=== PATIENT | female | born 1930 | race Two or more races ===

== ENCOUNTER 2016-07-15 13:02 | Emergency (ER) | payer MEDICARE, OTHER ==
[~2016-07-15 13:02] MED LIST: AMOX1TAB61 PO; AMOX500C PO; BENZ100C PO; CEFI200S PO; CEFT1FRO2 IV; CEPH-264 PO; CYCL10TA2 PO; DICL100G7 TP; GABA-586 PO; LISI-334 PO; MINO50CA PO; NITR100C62 PO; OXYC1TAB7 PO; POLY500P14 MC; SERT25TA4 PO; SERT50TA8 PO; SULF1TAB24 PO; SULF1TAB3 PO
--- NOTE | 2016-07-15 14:05 | RAD ---
Indication productive cough. Duration of symptoms for days. A single view of the chest was obtained and is compared to a study 02/16/2016. Slightly tortuous thoracic aorta is noted. Heart size and pulmonary vessels are within normal limits. A focal infiltrate is not seen. Significant pleural fluid is not seen. There is no pneumothorax. A significant change compared to the prior study is not seen. IMPRESSION: No acute or focal process. No significant change
[2016-07-15 14:08] LABS: BILIRUBIN,URINE NEGATIVE (NEG); GLUCOSE,URINE NEGATIVE (NEG); NITRITE,URINE POSITIVE (NEG); PROTEIN,URINE 30 mg/dL (NEG-TRACE)
--- NOTE | 2016-07-15 14:10 | EKG ---
[facility] [address] [place] [address] Test Date: 2016-07-15 Test Time: 13:51:08 Pat Name: DOT Sandhupartment: Room: Gender: F Office Administrator: : [id number] Requested By: RASHIDA ANTON Order Number: [id number] Reading MD: Measurements Intervals Smyer Rate: 72 P: 39 IN: 178 QRS: -4 QRSD: 70 T: 39 QT: 382 QTc: 420 Interpretive Statements SINUS RHYTHM LEFTWARD AXIS R-S TRANSITION ZONE IN V LEADS DISPLACED TO THE RIGHT OTHERWISE NORMAL ECG RI6.01 Unconfirmed report No previous ECG available for comparison
--- NOTE | 2016-07-15 14:21 | RAD ---
CT of the head without contrast, 07/15/2016: History: Confusion Comparison is made to a study from 02/16/2016. There is encephalomalacia in the posterior aspect of the right cerebellar hemisphere compatible with an old infarct. There are large sulci with underlying cerebral lucency in the left frontoparietal region also compatible with an old infarct. There is compensatory enlargement of the left lateral ventricle. There is no shift of the midline structures. There is no evidence of acute intracranial hemorrhage or mass effect. There is extensive calcific plaquing of the distal internal carotid and vertebral arteries bilaterally. Extensive hyperostosis interna is present bilaterally. IMPRESSION: 1. 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 2. No acute intracranial abnormality is detected. PQRS Compliance Statement: One or more of the following individualized dose reduction techniques were utilized for this examination: 1. Automated exposure control 2. Adjustment of the mA and/or kV according to patient size 3. Use of iterative reconstruction technique
--- NOTE | 2016-07-15 14:21 | PHYS DOC ---
Past Medical History Past Medical History: Hypertension, Stroke Additional Past Medical Histor: nerve pain in the lower ext Past Surgical History: Other Additional Past Surgical Histo: supra pubic cath Alcohol Use: None Drug Use: None Adult General Chief Complaint Chief Complaint: DIFFICULTY SWALLOWING HPI HPI 85-year-old female presenting to the emergency department today with 2 main complaints. Complaint #1. Cough. She describes a hacking cough that is productive with white sputum. Started approximate 4 days ago. She has also been having trouble swallowing for the past 7 days. She has a history of a stroke with residual deficits in her right upper and lower extremity. Family reports that she is having difficulty with soft foods and liquids. They deny her having a fever at home. Onset 4 days. Location lungs. Duration intermittent. Associated with a cough. Review of systems is negative for chest pain shortness of breath abdominal pain nausea or vomiting. All other review of systems is negative unless otherwise noted in history of present illness. Review of Systems Review of Systems SEE ABOVE. Allergies Allergies Allergies Coded Allergies Type Severity Reaction Last Updated Verified No Known Drug Allergies 07/15/16 No Physical Exam Physical Exam Constitutional: Well developed, well nourished, no acute distress, non-toxic appearance. [] HENT: Normocephalic, atraumatic, bilateral external ears normal, oropharynx moist, no oral exudates, nose normal. Eyes: PERRLA, EOMI, conjunctiva normal, no discharge. [] Neck: Normal range of motion, no tenderness, supple, no stridor. Cardiovascular:Heart rate regular rhythm, no murmur [] Lungs & Thorax: Bilateral breath sounds clear to auscultation Abdomen: Bowel sounds normal, soft, no tenderness, no masses, no pulsatile masses. [] Skin: Warm, dry, no erythema, no rash. [] Back: No tenderness, no CVA tenderness. Extremities: No tenderness, no cyanosis, no clubbing, ROM intact, no edema. [] Neurologic: Mental status: Awake oriented and alert x3 Cranial nerves: Extraocular movements intact, eyebrows nida bilaterally smile symmetric, uvula elevation, shoulder shrug intact, tongue protrusion midline Sensation: equal and normal in all extremities Strength: 5 strength in the left upper and left lower extremity. Patient has residual weakness in the right upper and right lower extremity. Psychologic: Affect normal, judgement normal, mood normal. Current Patient Data Vital Signs Vital Signs Date Time Temp Pulse Resp B/P Pulse Ox O2 Delivery O2 Flow Rate FiO2 07/15/16 13:09 97.7 79 20 126/69 97 Room Air 97.7 Lab Values Laboratory Tests Test 07/15/16 14:00 07/15/16 14:23 07/15/16 14:25 Urine Collection Type Unknown Urine Color Yellow Urine Clarity Turbid Urine pH 6.0 Urine Specific [place] 1.020 Urine Protein 30mg/dL (NEG-TRACE) Urine Glucose (UA) Negativemg/dL (NEG) Urine Ketones (Stick) Negativemg/dL (NEG) Urine Blood Large (NEG) Urine Nitrite Positive (NEG) Urine Bilirubin Negative (NEG) Urine Urobilinogen Dipstick 1.0mg/dL (0.2 mg/dL) Urine Leukocyte Esterase Large (NEG) Urine RBC 6-10/HPF (0-2) Urine WBC >40/HPF (0-4) Urine Squamous Epithelial Cells Occ/LPF Urine Bacteria Moderate/HPF (0-FEW) Urine Yeast Present/HPF Glucose (Fingerstick) 93mg/dL (70-99) White Blood Count 8.5x10^3/uL (4.0-11.0) Red Blood Count 4.62x10^6/uL (3.50-5.40) Hemoglobin 11.7g/dL (12.0-15.5) L Hematocrit 37.0% (36.0-47.0) Mean Corpuscular Volume 80fL (79-100) Mean Corpuscular Hemoglobin 25pg (25-35) Mean Corpuscular Hemoglobin Concent 32g/dL (31-37) Red Cell Distribution Width 17.5% (11.5-14.5) H Platelet Count 222x10^3/uL (140-400) Neutrophils (%) (Auto) 63% (31-73) Lymphocytes (%) (Auto) 26% (24-48) Monocytes (%) (Auto) 8% (0-9) Eosinophils (%) (Auto) 3% (0-3) Basophils (%) (Auto) 0% (0-3) Neutrophils # (Auto) 5.3x10^3uL (1.8-7.7) Lymphocytes # (Auto) 2.2x10^3/uL (1.0-4.8) Monocytes # (Auto) 0.7x10^3/uL (0.0-1.1) Eosinophils # (Auto) 0.2x10^3/uL (0.0-0.7) Basophils # (Auto) 0.0x10^3/uL (0.0-0.2) Sodium Level 146mmol/L (136-145) H Potassium Level 4.1mmol/L (3.5-5.1) Chloride Level 107mmol/L (98-107) Carbon Dioxide Level 28mmol/L (21-32) Anion Gap 11 (6-14) Blood Urea Nitrogen 19mg/dL (7-20) Creatinine 0.5mg/dL (0.6-1.0) L Estimated GFR (Cockcroft-Gault) 117.0 Glucose Level 102mg/dL (70-99) H Lactic Acid Level 1.0mmol/L (0.4-2.0) Calcium Level 9.4mg/dL (8.5-10.1) Total Bilirubin 0.3mg/dL (0.2-1.0) Direct Bilirubin 0.1mg/dL (0.0-0.2) Aspartate Amino Transferase (AST) 23U/L (15-37) Alanine Aminotransferase (ALT) 19U/L (14-59) Alkaline Phosphatase 86U/L (46-116) Troponin I Quantitative 0.028ng/mL (0.000-0.055) XU-Fpg-B-Type Natriuretic Peptide 223pg/mL (0-449) Total Protein 7.3g/dL (6.4-8.2) Albumin 3.1g/dL (3.4-5.0) L Lipase 169U/L (73-393) Laboratory Tests 07/15/16 14:25 Laboratory Tests 07/15/16 14:25 EKG EKG [] Radiology/Procedures Radiology/Procedures [] Course & Med Decision Making Course & Med Decision Making Pertinent Labs and Imaging studies reviewed. (See chart for details) 85-year-old female presenting to the emergency department today with choking on foods difficulty swallowing and cough over the past few days. Initially the patient's vital signs afebrile. Unremarkable. Physical exam findings show residual stroke on the right upper and lower extremity. Chest x-ray obtained. EKG unremarkable. Blood work obtained. Chest x-ray normal. CBC shows mild anemia. Urinalysis suggestive of infection. Chemistry panel unremarkable. Troponin within the reference range of normal. Lactic acid normal. Glucose normal. I discussed the case with the patient's primary care doctor Dr. Guzman. He agreed to follow the patient in the next few days. I recommended the patient follow-up with him over the next one or 2 days for outpatient further evaluation workup and care. Bedside swallow screening was performed by our nurse who stated the patient was able to swallow clear liquids without any difficulty. [id number] discharge instructions given. Patient and family comfortable with plan. Dragon Disclaimer Dragon Disclaimer This electronic medical record was generated, in whole or in part, using a voice recognition dictation system. Departure Departure Impression: Primary Impression: Difficulty swallowing Additional Impressions: CVA, old, hemiparesis Cough Disposition: HOME, SELF-CARE Admitting Physician: Geovanni Guzman Condition: STABLE Referrals: GEOVANNI GUZMAN MD (PCP) Patient Instructions: Cough, Adult, Dysphagia Additional Instructions: Thank you for allowing us to participate in your care today. Followup with your primary care physician in 1-2 days if your symptoms do not improve. If you do not have a primary care provider you can ask for a list of our primary care providers. Return to the emergency department you have any new or concerning findings. This should be evaluated by the primary care physician and any necessary consulting services for continued management within a few days after discharge. Return to emergency room if you have any new or concerning symptoms including but not limited to fever, chills, nausea, vomiting, intractable pain, any new rashes, chest pain, shortness of air, uncontrolled bleeding, difficulty breathing, and/or vision loss. Problem Qualifiers RASHIDA ANTON MD Jul 15, 2016 14:21
[2016-07-15 14:27] LABS: BACTERIA,URINE MODERATE /HPF (0-FEW); SQUAMOUS EPITHELIAL CELL,UR OCC /LPF; WBC,URINE >40 /HPF (0-4); YEAST,URINE PRESENT /HPF
[2016-07-15 14:36] LABS: BASO % 0 % (0-3); EOS % 3 % (0-3); HEMOGLOBIN 11.7 g/dL (12.0-15.5); LYMPH # 2.2 x10^3/uL (1.0-4.8); LYMPH % 26 % (24-48); MEAN CORPUSCULAR HEMOGLOBIN 25 pg (25-35); MEAN CORPUSCULAR HGB CONC 32 g/dL (31-37); MEAN CORPUSCULAR VOLUME 80 fL (79-100); MONO % 8 % (0-9); NEUT % 63 % (31-73); PLATELET COUNT 222 x10^3/uL (140-400); RED BLOOD COUNT 4.62 x10^6/uL (3.50-5.40); RED CELL DISTRIBUTION WIDTH 17.5 % (11.5-14.5); WHITE BLOOD COUNT 8.5 x10^3/uL (4.0-11.0)
--- NOTE | 2016-07-15 14:58 | ACF ---
Admission Forms Criteria HEAD AND NECK DISEASE [facility] Clinical Indications for Admission to Inpatient Care ( Place 'X' for any and all applicable criteria): Hospital admission is needed for appropriate care of the patient because of ANY ONE of the following (1)(2): [ ]I. Severe sinusitis as indicated by ANY ONE of the following (6)(13)(21) [ ]a) Suspected ADVERTISING EDITOR infection [ ]b) Bacteremia [ ]c) Hemodynamic instability [ ]d) Outpatient and observation care antibiotic treatment have failed or are not considered appropriate [ ]e) Surgical drainage needed that cannot be performed on an outpatient basis or observation. setting [ ]f) Suspected orbital involvement [ ]II. Acute glaucoma unresponsive to emergency treatment that requires medication or other treatment beyond the scope of observation care (1) [ ]III. Severe eye infection or inflammation (eg, uveitis) which is unresponsive to emergency treatment and requires medication or other treatment beyond the scope of observation care (1)(2)(3)(4) [ ]IV. Severe epistaxis requiring posterior packing (5)(6) [ ]V. Acute bacterial labyrinthitis(6)(7) [ ]. Viral labyrinthitis with symptoms uncontrollable on an outpatient or observation care basis (6)(7) [ ]VII. Severe necrotizing external otitis unresponsive to outpatient and observation care treatment(6) [ ]VIII. Otitis media requiring treatment beyond the scope of outpatient and observation care, as indicated by presence or persistence of ANY ONE of the following(6)(8)(9): [ ]a) Hemodynamic instability [ ]b) Mastoiditis [ ]c) Suspected ADVERTISING EDITOR infection [ ]d) Bacteremia [ ]e) Surgical drainage needed that cannot be performed as an outpatient. or in an observation setting. [ ]IX. Epiglottitis or supraglottitis(6)(11)(12)(13)(14) [ ]X. Stridor or laryngospasm (unresponsive to emergency management) (6)(11)( 12)(13)(14) [ ]XI. Acute pharyngitis or tonsillitis and ANY ONE of the following (14)(15)( 16): [ ]a) Hemodynamic instability remaining after emergency or observation level care (as appropriate) [ ]b) Surgical drainage needed that cannot be performed in outpatient or observation setting [ ]c) Mediastinitis [ ]d) Thrombophlebitis of internal jugular vein (Lemierre syndrome) [ ]XII. Sialoadenitis and ANY ONE of the following (17) (18) [ ]a) Hemodynamic instability remaining after emergency or observation level care(as appropriate) [ ]b) Surgical drainage needed that cannot be performed in outpatient or observation setting [X]XIII. Airway blockage or inability to swallow (6)(12)(19)(20) [ ]XIV.Complicated infection indicated by ANY ONE of the following(6)(13)(21)(22 ): [ ]a) Abscess or swelling causing airway difficulty(12) [ ]b) Bacteremia [ ]c) Hemodynamic instability [ ]d) Suspected ADVERTISING EDITOR infection [ ]e) Outpatient and observation care antibiotic treatment have failed or are not considered appropriate [ ]f) Surgical drainage needed that cannot be performed on an outpatient basis or observation setting [ ]g) Other management need that cannot be performed in outpatient or observation setting: [ ]XV. Severe trauma requiring inpatient medical treatment of eye, head, pharynx, or airway (1)(23)([phone]) [ ]XVI. Ischemic optic neuropathy(11) [ ]XVII.Head or Neck Disease condition and ANY ONE of the following: [ ]a) Symptom or finding for which emergency and observation care have failed or are not considered appropriate (Also use General Criteria: Observation Care as appropriate) [ ]b) Presence of ANY ONE of the following: [ ]i) A General Admission Criteria [ ]ii) A Pediatric General Admission Criteria The original [facility] content created by [facility] has been revised. The portions of the content which have been revised are identified through the use of italic text or in bold, and [facility] has neither reviewed nor approved the modified material. All other unmodified content is copyright [facility]. Please see references footnoted in the original [facility] edition 2016 Admission Criteria Met?: Yes KEVIN HERRING Jul 15, 2016 14:58
[2016-07-15 15:02] LABS: CALCIUM 9.4 mg/dL (8.5-10.1); CREATININE 0.5 mg/dL (0.6-1.0); POTASSIUM 4.1 mmol/L (3.5-5.1)
[2016-07-15 15:15] LABS: ALBUMIN 3.1 g/dL (3.4-5.0); DIRECT BILIRUBIN 0.1 mg/dL (0.0-0.2); TOTAL BILIRUBIN 0.3 mg/dL (0.2-1.0); TOTAL PROTEIN 7.3 g/dL (6.4-8.2)
[2016-07-15] MEDS ORDERED: LEVO500T38 PO (15:37)
[2016-07-15 15:51] VITALS: BP 147/64
[2016-07-16] MEDS ORDERED: ASPI81TA2 PO (09:27)
[2016-07-16] MEDS ORDERED: prunelax PO (09:27)
[2016-07-16] MEDS ORDERED: GABA600T2 PO (09:27)
== END 2016-07-15 16:21 | disposition home or self-care (01) ==
LOC: ER 13:02
DX: I69.391 Dysphagia following cerebral infarction (principal); I69.359 Hemiplegia and hemiparesis following cerebral infarction affecting unspecified side; R13.10 Dysphagia, unspecified; R05 Cough; I10 Essential (primary) hypertension
CPT/HCPCS: 36415; 70450; 71010; 80048; 80076; 81001; 82947; 83605; 83690; 83880; 84484; 85027; 87086; 93005; 99285; A4314

== ENCOUNTER 2016-07-16 08:55 | Outpatient (CLI) | payer MEDICARE, OTHER ==
[~2016-07-16] VITALS: Ht 172.7 cm; Wt 61.2 kg
[2016-07-16] VITALS (9 sets, daily range): BP systolic 100–127; BP diastolic 52–67
[~2016-07-16 08:55] MED LIST changes: +LEVO500T38 PO
[2016-07-16] MEDS ORDERED: ASPI81TA2 PO (09:27)
[2016-07-16] MEDS ORDERED: prunelax PO (09:27)
[2016-07-16] MEDS ORDERED: GABA600T2 PO (09:27)
[2016-07-16 09:46] LABS: CALCIUM 9.5 mg/dL (8.5-10.1); CREATININE 0.6 mg/dL (0.6-1.0); GFR 94.8; POTASSIUM 4.6 mmol/L (3.5-5.1)
[2016-07-16 09:55] LABS: INR 1.1 (0.8-1.1); PROTHROMBIN TIME PATIENT 13.6 SEC (11.7-14.0)
[2016-07-16] MEDS ORDERED: IOHEXOL 300 MG/ML 100ML VIAL. ONE (10:10)
[2016-07-16] MEDS ORDERED: LIDOCAINE 1% / SOD BICARB 8.4% 20 ML VIAL. IJ ONE ×2 (10:11→11:00)
[2016-07-16] MEDS ORDERED: MIDAZOLAM HCL 2 MG/2 ML VIAL. ONE (10:17)
[2016-07-16] MEDS ORDERED: FENTANYL PF 100 MCG/2 ML VIAL. ONE (10:17)
[2016-07-16] MEDS ORDERED: IODIXANOL 320 MG/ML 100 ML VIAL. ONE (10:25)
[2016-07-16] MEDS ORDERED: IODIXANOL 320MG/ML 50ML VIAL. ONE (10:27)
[2016-07-16] MEDS ORDERED: HEPARIN for IV BOLUS 10,000 UNIT/10 ML VIAL. ONE (10:52)
[2016-07-16] MEDS ORDERED: IODIXANOL 320 MG/ML 100 ML VIAL. IART ONE (11:00)
[2016-07-16] MEDS ORDERED: MIDAZOLAM HCL 2 MG/2 ML VIAL. IV ONE (11:00)
[2016-07-16] MEDS ORDERED: HEPARIN for IV BOLUS 10,000 UNIT/10 ML VIAL. IV ONE (11:00)
[2016-07-16] MEDS ORDERED: FENTANYL PF 100 MCG/2 ML VIAL. IV ONE (11:00)
--- NOTE | 2016-07-16 11:34 | PDOC ---
MODERATE SEDATION ASSESSMENT RISKS/ALTERNATIVES Risks/Alternatives Risks and alternatives of this type of sedation and procedure discussed with: RISK/ALTERNATIVES: Patient H & P ON CHART H & P H & P on chart and reviewed for co-morbid conditions and appropriate labs. H&P ON CHART: Yes STATUS PREG STATUS ASSESSED: Yes MEDS/ALLERGIES REVIEWED Meds/Allergies Reviewed Medications and Allergies including time and route of recently administered narcotics and sedatives. MEDS/ALLERGIES REVIEWED: Yes ASA RATING ASA RATING: II AIRWAY ASSESSMENT Airway Assessment Airway patency, oral function limitations, presence of caps, crowns, dentures, partials, and ability to extend neck assessed. AIRWAY ASSESSMENT: Yes MALLAMPATI SCORE MALLAMPATI SCORE: II PRE-SEDATION ASSESSMENT PRE-SEDATION ASSESSMENT: Yes ELHAM SHAFER MD Jul 16, 2016 11:34
--- NOTE | 2016-07-16 11:36 | PDOC1 ---
History and Physical Date of Procedure Date of Admission History of Present Illness Reason for Visit 85 yo female with RLE rest pain Past Medical History Past Medical History see nursing pre-op assessment Current Medications Current Medications Current Medications Iohexol (Omnipaque 300 Mg/ml) 100 ml STK-MED ONCE .ROUTE ; Start 07/16/16 at 10: 10; Stop 07/16/16 at 10:11; Status DC Lidocaine/Sodium Bicarbonate 20 ml 20 ml STK-MED ONCE IJ ; Start 07/16/16 at 10: 11; Stop 07/16/16 at 10:12; Status DC Heparin Sodium/ Sodium Chloride 1,000 ml @ As Directed STK-MED ONCE .ROUTE ; Start 07/16/16 at 10:11; Stop 07/16/16 at 10:12; Status DC Midazolam HCl (Versed) 2 mg STK-MED ONCE .ROUTE ; Start 07/16/16 at 10:17; Stop 07/16/16 at 10:18; Status DC Fentanyl Citrate (Fentanyl 2ml Vial) 100 mcg STK-MED ONCE .ROUTE ; Start at 10:17; Stop 07/16/16 at 10:18; Status DC Iodixanol (Visipaque 320) 100 ml STK-MED ONCE .ROUTE ; Start 07/16/16 at 10:25; Stop 07/16/16 at 10:26; Status DC Iodixanol (Visipaque 320) 50 ml STK-MED ONCE .ROUTE ; Start 07/16/16 at 10:27; Stop 07/16/16 at 10:28; Status DC Heparin Sodium (Porcine) 10,000 unit STK-MED ONCE .ROUTE ; Start 07/16/16 at 10: 52; Stop 07/16/16 at 10:53; Status DC Heparin Sodium/ Sodium Chloride 1,000 unit 1X ONCE IART Last administered on 11:26; Start 07/16/16 at 11:00; Stop 07/16/16 at 11:07; Status DC Heparin Sodium/ Sodium Chloride 1,000 unit 1X ONCE IART Last administered on 11:26; Start 07/16/16 at 11:00; Stop 07/16/16 at 11:07; Status DC Lidocaine/Sodium Bicarbonate (Buffered Lidocaine 1%) 2 ml 1X ONCE IJ Last administered on 07/16/16 11:27; Start 07/16/16 at 11:00; Stop 07/16/16 at 11:07 ; Status DC Midazolam HCl (Versed) 1 mg 1X ONCE IV Last administered on 07/16/16 11:28; Start 07/16/16 at 11:00; Stop 07/16/16 at 11:07; Status DC Fentanyl Citrate (Fentanyl 2ml Vial) 50 mcg 1X ONCE IV Last administered on 11:28; Start 07/16/16 at 11:00; Stop 07/16/16 at 11:07; Status DC Iodixanol (Visipaque 320) 100 ml 1X ONCE IART Last administered on 07/16/16 11:27; Start 07/16/16 at 11:00; Stop 07/16/16 at 11:07; Status DC Heparin Sodium (Porcine) 5,000 unit 1X ONCE IV Last administered on 07/16/16 11:29; Start 07/16/16 at 11:00; Stop 07/16/16 at 11:07; Status DC Active Scripts Active Levaquin (Levofloxacin) 500 Mg Tablet 1 Tab PO DAILY Sertraline Hcl 25 Mg Tablet 25 Mg PO DAILY 30 Days Reported [prunelax] 1 Tab PO DAILY Gabapentin 600 Mg Tablet 600 Mg PO TID Aspirin 81 Mg Tab.chew 1 Tab PO DAILY Lisinopril 20 Mg Tablet 10 Mg PO DAILY Allergies Allergies: Coded Allergies: No Known Drug Allergies (Unverified , 07/15/16) Physical Exam Vital Signs Vital Signs Date Time Temp Pulse Resp B/P Pulse Ox O2 Delivery O2 Flow Rate FiO2 07/16/16 11:28 12 100 Nasal Cannula 4.0 07/16/16 09:52 97.4 74 127/67 97.4 Other see nursing pre-op assessment Assessment Assessment PAD with rest pain Problems: Plan Plan Aortogram and bilateral lower extremity run-offs with intervention. ELHAM SHAFER MD Jul 16, 2016 11:36
--- NOTE | 2016-07-16 11:39 | PDOC ---
BRIEF OPERATIVE NOTE Pre-Op Diagnosis PAD with rest pain Post-Op Diagnosis same Procedure Performed AIF and right external iliac artery angioplasty with DCB Surgeon Santino Anesthesia Type: Conscious Sedation Findings Severe right EIA stenosis. Occluded R SFA entirely, patent popliteal, single vessel runoff with AT directly flowing to the DP with only mild disease in the DP. left leg with moderate to severe multifocal stenoses throughout the SFA, patent popliteal, severe proximal runoff stenoses and two vessel runoff via the AT and peroneal with patent DP of the foot. Complications No immediate ELHAM SHAFER MD Jul 16, 2016 11:39
--- NOTE | 2016-07-16 14:30 | RAD ---
Procedure: Aortogram and bilateral lower extremity runoffs, drug code balloon angioplasty of the right external iliac artery. Clinical Indication: 85 old female with peripheral arterial disease and ischemic rest pain involving the right lower extremity Sedation: Conscious sedation was administered for 59 minutes. The patient was monitored by a qualified independent observer throughout the time of sedation. Please refer to the medical record for exact doses of medications utilized to achieve moderate sedation. Antibiotics: None Exposure: Kerma-Area Product: 106 Gycm2 OR Contrast: 80 cc of Visipaque 320 contrast media Sterility: All elements of maximal sterile barrier technique including the use of a cap, mask, sterile gown, sterile gloves, large sterile sheet, appropriate hand hygiene, and 2% chlorhexidine for cutaneous antisepsis (or acceptable alternative antiseptic per current guidelines) were followed for this procedure. Consent: The procedure was explained in its entirety to the patient or the patients designated sales service representative by a member of the treatment team, including a discussion of the risks, benefits and commonly accepted alternatives to the procedure, as well as the expected consequences of no therapy whatsoever. Discussion of the risks included, but was not limited to, those that are most frequent and those that are rare but possibly severe or life-threatening, as well as the possibility of unforeseen complications. Technique and Findings: Following informed consent, the patient was prepped and draped in the usual sterile fashion. Ultrasound interrogation of the left groin revealed patency of the left common femoral artery. A hardcopy ultrasound image was recorded as a 21-gauge micropuncture needle was used to gain access to this vessel. The needle was exchanged over a wire for 5 [place]uran sheath. A flush catheter was then advanced into the aorta and contrast aortography was performed. The aorta is nonaneurysmal with mild multifocal atherosclerotic disease. No clinically significant stenoses are present. Bilateral common iliac and internal iliac arteries are patent as well with mild multifocal atherosclerotic disease and no significant stenoses. There is greater than 50% stenosis of the ostium of the right renal artery. Mild stenosis involving the left renal artery. The ostia of the mesenteric vessels is not well demonstrated in this anterior projection. These vessels do fill symmetrically however. The flush catheter was then withdrawn to just above the aortic bifurcation and contrast angiography of the pelvis is performed. There is approximately 60-70% focal stenosis of the distal right external iliac artery near the junction with the common femoral artery. Moderate multifocal atherosclerotic disease is seen throughout the common femoral artery on the right, with more mild multifocal stenosis seen in the left common femoral artery. The catheter was then used in conjunction with a wire to cross the aortic bifurcation and gain access to the contralateral right common femoral artery and contrast angiography of the right leg is performed. There is abrupt occlusion of the origin of the superficial femoral artery, with multiple well-developed chronic collaterals reconstituting the above-knee popliteal artery. The above knee popliteal artery is patent, with mild to moderate multifocal atherosclerotic disease. No significant stenoses are seen within the popliteal artery. There is a single vessel runoff via an anterior tibial artery which demonstrates several tandem moderate proximal stenoses. The tibioperoneal trunk, peroneal artery, and posterior tibial arteries are occluded throughout their entire length. The anterior tibial artery gives in-line flow to a patent dorsalis pedis artery which is notable only for mild atherosclerotic disease with no significant stenoses. The 5 [place]uran sheath was then exchanged over wire for a 6 [place] Ansell sheath which was used to cross the aortic bifurcation. A 6 mm x 40 mm drug coated balloon was then advanced over wire across the area of stenosis within the right external iliac artery after administration of heparin intravenously. Balloon angioplasty was then performed for 3 minutes. The balloon was removed and contrast angiography demonstrated excellent angiographic profile with no residual stenosis. There is a very small area of nonflow limiting intimal disruption which was felt to be of doubtful clinical significance. The wire was then removed and the sheath was retracted to the capsule lateral left external iliac artery and contrast angiography of the entire left leg was performed. The left profunda femoral artery is widely patent. The left superficial femoral artery is patent throughout its length as well, though there are several areas of greater than 50% tandem stenoses, particularly involving the distal SFA. The popliteal artery is fairly healthy with only mild multifocal atherosclerotic disease, and provides in-line flow to the anterior tibial artery which once again provides direct flow to a healthy-appearing dorsalis pedis artery. Anterior tibial artery does demonstrate approximately 4 to 5 cm of severe proximal narrowing. The tibial peroneal trunk on the left is notable for severe long segment disease, but does remain patent and provides in-line flow to a patent but diseased peroneal artery which continues to the ankle. There is also flow within the proximal one third of a heavily diseased posterior tibial artery, which subsequently tapers to occlusion at the mid calf. The posterior tibial artery of the foot is only seen by retrograde reconstitution on delayed imaging. The sheath was then exchanged for a star close device which was successfully utilized to obtain hemostasis. Complications: No immediate Impression: 1. Right full length SFA occlusion with reconstitution of the above-knee popliteal artery. There is only mild atherosclerotic disease within the popliteal artery which appears suitable for grafting. 2. Single vessel runoff on the right via the anterior tibial artery to the dorsalis pedis artery which also appears only minimally involved with atherosclerosis. There is moderate to severe multifocal atherosclerosis of the proximal anterior tibial artery which may be amenable to percutaneous angioplasty following femoropopliteal bypass if the patient's symptoms persist. 3. Moderate to severe right focal external iliac artery stenosis successfully treated with drug coated balloon angioplasty. 4. Moderate to severe multifocal atherosclerosis throughout a patent left superficial femoral artery. 5. 2 vessel runoff on the left via the anterior tibial and peroneal arteries, both of which are heavily diseased however. 6. Only mild atherosclerotic involvement of the popliteal and dorsalis pedis arteries of the left leg.
== END 2016-07-16 13:50 ==
LOC: INTRAD 08:55
PROVIDERS: ATTEND Family Medicine
DX: I70.221 Atherosclerosis of native arteries of extremities with rest pain, right leg (principal); I10 Essential (primary) hypertension; F32.9 Major depressive disorder, single episode, unspecified; Z90.49 Acquired absence of other specified parts of digestive tract; Z86.73 Personal history of transient ischemic attack (TIA), and cerebral infarction without residual deficits; F03.90 Unspecified dementia, unspecified severity, without behavioral disturbance, psychotic disturbance, mood disturbance, and anxiety; Z87.440 Personal history of urinary (tract) infections
CPT/HCPCS: 36415; 37220; 75625; 75716; 76937; 80048; 85610; C1760; C1769; C1892; C1894; C2623; G0269; J2250; J3010; Q9967

== ENCOUNTER → 2016-08-01 | Outpatient (CLI) | payer MEDICARE, OTHER ==
[2016-07-16 13:47] VITALS: BP 100/52
[~2016-08-01] MED LIST changes: +ASPI81TA2 PO; +GABA600T2 PO; +prunelax PO
--- NOTE | 2016-08-01 16:44 | RAD ---
Right foot radiographs History: Great toenail removed 3 weeks ago, pain, evaluate for osteomyelitis. Comparison: None. Findings: AP, lateral, and oblique views of the right foot. Osseous structures are demineralized. Arterial calcifications are seen. No acute fracture or dislocation is identified. No convincing osteolysis is seen. There is soft tissue swelling of the great toe. Large plantar calcaneal enthesophyte is present. Impression: No osteomyelitis identified, although radiographic evidence of such is a relatively late finding.
== END | disposition home or self-care (01) ==
LOC: RAD 11:40
PROVIDERS: ATTEND Podiatrist Foot & Ankle Surgery
DX: M86.171 Other acute osteomyelitis, right ankle and foot (principal)
CPT/HCPCS: 73630

== ENCOUNTER → 2016-08-15 | Outpatient (CLI) | payer MEDICARE, OTHER ==
[2016-07-16 13:47] VITALS: BP 100/52
== END | disposition home or self-care (01) ==
LOC: SPEC 13:14
PROVIDERS: ATTEND Internal Medicine Rheumatology
DX: S91.301A Unspecified open wound, right foot, initial encounter (principal); X58.XXXA Exposure to other specified factors, initial encounter; Y93.89 Activity, other specified; Y92.89 Other specified places as the place of occurrence of the external cause; Y99.8 Other external cause status
CPT/HCPCS: 87071; 87075; 87205

== ENCOUNTER 2016-09-24 07:48 | Outpatient (CLI) | payer MEDICARE, OTHER ==
[2016-07-16 13:47] VITALS: BP 100/52
[~2016-09-24] VITALS: Ht 152.4 cm; Wt 54.4 kg
[2016-09-24] MEDS ORDERED: LIDOCAINE 1% / SOD BICARB 8.4% 20 ML VIAL. IJ ONE ×2 (07:59→08:00)
[2016-09-24] MEDS ORDERED: ERTAPENEM 1GM IVPB FOR OMNI 50 ML IV ONE (08:15)
[2016-09-24] MEDS ORDERED: ERTAPENEM 1 GM in IV NORMAL SALINE 50ML 50 ML IV ONE (08:30)
--- NOTE | 2016-09-24 08:35 | PDOC1 ---
History and Physical Date of Procedure Date of Admission 09/24/16 Procedure Procedure Image guided Power Picc insertion Indication Indication 86 YO female with severe PAD and with toe osteomyelitis. Picc requested for terminal press operator IV abx. Past Medical History Past Medical History See Nursing Pre procedure PMH Past Surgical History Past Surgical History See Nursing Pre procedure PSH Current Medications Current Medications Current Medications Heparin Sodium/ Sodium Chloride 1,000 unit 1X ONCE IART ; Start 09/24/16 at 08: 00; Stop 09/24/16 at 08:01; Status DC Lidocaine/Sodium Bicarbonate (Buffered Lidocaine 1%) 20 ml 1X ONCE IJ ; Start 09/24/16 at 08:00; Stop 09/24/16 at 08:01; Status DC Lidocaine/Sodium Bicarbonate (Buffered Lidocaine 1%) 20 ml STK-MED ONCE IJ ; Start 09/24/16 at 07:59; Stop 09/24/16 at 08:00; Status DC Heparin Sodium/ Sodium Chloride 500 ml @ As Directed STK-MED ONCE .ROUTE ; Start 09/24/16 at 07:59; Stop 09/24/16 at 08:00; Status DC Ertapenem 50 ml @ 100 mls/hr 1X ONCE IV ; Start 09/24/16 at 08:15; Stop at 08:44; Status UNV Ertapenem 1 gm/ Sodium Chloride 50 ml @ 100 mls/hr 1X ONCE IV ; Start at 08:30; Stop 09/24/16 at 08:59 Active Scripts Active Levaquin (Levofloxacin) 500 Mg Tablet 1 Tab PO DAILY Sertraline Hcl 25 Mg Tablet 25 Mg PO DAILY 30 Days Reported [prunelax] 1 Tab PO DAILY Gabapentin 600 Mg Tablet 600 Mg PO TID Aspirin 81 Mg Tab.chew 1 Tab PO DAILY Lisinopril 20 Mg Tablet 10 Mg PO DAILY Allergies Allergies: Coded Allergies: No Known Drug Allergies (Unverified , 07/15/16) Assessment Assessment PAD with toe osteomyelitis---needs terminal press operator IV abx Problems: Plan Plan Image guided Power Picc insertion ANTONINA VIDES MD September 24, 2016 08:34
--- NOTE | 2016-09-24 09:10 | PDOC ---
Exam Certified Meeting Professional Certified Meeting Professional Jose Bessemer Regulator Bessemer Regulator Ronnie Carcamo Pre-Procedure Diagnosis Pre-Procedure Diagnosis 86 YO female with HTN, severe PAD, and tight great h/o toe osteomyelitis---Picc requested for jail IV abx Post-Procedure Diagnosis Post-Procedure Diagnosis Same Procedure Performed Procedure Performed Sono/fluoro guided Power Picc insertion Type of Anesthesia Type of Anesthesia Local Estimated Blood Loss EBL: Minimal Drain/Tubes Drains/Tubes Left brachial vein 5F 2L 45cm Power Picc Condition of Patient Condition of Patient Stable. No apparent complication. Disposition Disposition Discharge from [facility] now, if no problems. OK to use Power Picc. F/u with referring MD. Full report to follow. ANTONINA VIDES MD September 24, 2016 09:10
[2016-09-24 09:11] LABS: BASO # 0.1 x10^3/uL (0.0-0.2); BASO % 1 % (0-3); EOS % 2 % (0-3); HEMOGLOBIN 11.8 g/dL (12.0-15.5); LYMPH # 2.6 x10^3/uL (1.0-4.8); LYMPH % 29 % (24-48); MEAN CORPUSCULAR HEMOGLOBIN 27 pg (25-35); MEAN CORPUSCULAR HGB CONC 34 g/dL (31-37); MEAN CORPUSCULAR VOLUME 80 fL (79-100); MONO % 5 % (0-9); NEUT % 63 % (31-73); PLATELET COUNT 179 x10^3/uL (140-400); RED CELL DISTRIBUTION WIDTH 16.8 % (11.5-14.5); WHITE BLOOD COUNT 9.1 x10^3/uL (4.0-11.0)
[2016-09-24 09:33] LABS: ALBUMIN/GLOBULIN RATIO 0.7 (1.0-1.7); CALCIUM 8.9 mg/dL (8.5-10.1); CREATININE 0.5 mg/dL (0.6-1.0); GFR 116.7; POTASSIUM 3.7 mmol/L (3.5-5.1); TOTAL BILIRUBIN 0.2 mg/dL (0.2-1.0); TOTAL PROTEIN 7.1 g/dL (6.4-8.2)
--- NOTE | 2016-09-24 16:03 | RAD ---
Ultrasound and fluoro guided power PICC placement Indication: 86-year-old female with toe osteomyelitis. Power PICC insertion has been requested for long-term IV antibiotics. Fluoro time: 0.5 minutes Kerma-Area Product: 0.4 Gycm2 Anesthesia: Local only Sterility: All elements of maximal sterile barrier technique, hand hygiene, skin preparation, and, if ultrasound was used, sterile ultrasound technique were followed. Procedure: Informed consent was obtained from the patient's daughter, through her granddaughter who served as foreign language interpreter. She was placed supine on the angiography table. Preliminary ultrasound examination of left upper arm revealed wide patency of right brachial vein, which was documented with a hard copy ultrasound image. Left upper arm was then prepped and draped in the usual sterile fashion, utilizing all elements of maximal sterile barrier technique, as described above. Using aseptic technique, local anesthesia, direct sterile ultrasound guidance, and the micropuncture system, successful percutaneous entry was achieved into left brachial vein at the level of distal humerus. A 5 Emirati dual lumen power PICC was trimmed to 45 cm in length, was inserted through a 5 Emirati peel-away sheath, and was easily advanced centrally under fluoroscopic control. Tip of the power PICC was positioned near cavoatrial junction. This was documented with a single fluoroscopic spot image. The PICC was then demonstrated to flush and aspirate normally, and was secured at the skin exit site utilizing suture and sterile dressing. The patient tolerated the procedure well without apparent complication. Impression: Successful, uneventful ultrasound and fluoro guided placement of left brachial vein 5 Emirati dual-lumen 45 cm power PICC, as described.
== END 2016-09-24 10:20 | disposition home or self-care (01) ==
LOC: INTRAD 07:48
PROVIDERS: ATTEND Internal Medicine Infectious Disease
DX: M86.8X7 Other osteomyelitis, ankle and foot (principal); I10 Essential (primary) hypertension; F32.9 Major depressive disorder, single episode, unspecified; Z86.69 Personal history of other diseases of the nervous system and sense organs; Z90.49 Acquired absence of other specified parts of digestive tract; Z86.73 Personal history of transient ischemic attack (TIA), and cerebral infarction without residual deficits; Z87.440 Personal history of urinary (tract) infections
CPT/HCPCS: 36415; 36569; 76937; 77001; 80053; 85027; 85651; C1751; C1892; J1335

== ENCOUNTER → 2016-11-25 | Outpatient (CLI) | payer MEDICARE, OTHER ==
[~2016-11-25] MED LIST changes: +ASPI-630 PO; -ASPI81TA2 PO; +DICL100G18 TP; -DICL100G7 TP; -LEVO500T38 PO; +LEVO500T59 PO; +SULF-143 PO; -SULF1TAB3 PO
[2016-11-25 10:22] VITALS: BP 126/49
== END | disposition home or self-care (01) ==
LOC: OPS 10:07
PROVIDERS: ATTEND Internal Medicine Infectious Disease
DX: M86.171 Other acute osteomyelitis, right ankle and foot (principal)
CPT/HCPCS: 99211

== ENCOUNTER → 2017-01-23 | Outpatient (CLI) | payer MEDICARE, OTHER ==
[2016-11-25 10:22] VITALS: BP 126/49
== END | disposition home or self-care (01) ==
LOC: PMGWOUND 11:00
PROVIDERS: ATTEND Emergency Medicine Undersea and Hyperbaric Medicine
DX: E11.622 Type 2 diabetes mellitus with other skin ulcer (principal); L98.411 Non-pressure chronic ulcer of buttock limited to breakdown of skin; L89.313 Pressure ulcer of right buttock, stage 3; E11.69 Type 2 diabetes mellitus with other specified complication; M86.171 Other acute osteomyelitis, right ankle and foot; K21.9 Gastro-esophageal reflux disease without esophagitis; F32.9 Major depressive disorder, single episode, unspecified; I10 Essential (primary) hypertension; M19.90 Unspecified osteoarthritis, unspecified site; J45.909 Unspecified asthma, uncomplicated; E11.51 Type 2 diabetes mellitus with diabetic peripheral angiopathy without gangrene; E78.00 Pure hypercholesterolemia, unspecified; E11.40 Type 2 diabetes mellitus with diabetic neuropathy, unspecified; Z86.73 Personal history of transient ischemic attack (TIA), and cerebral infarction without residual deficits; B02.9 Zoster without complications
CPT/HCPCS: 97597; 97598

== ENCOUNTER → 2017-01-30 | Outpatient (CLI) | payer MEDICARE, OTHER ==
[2016-11-25 10:22] VITALS: BP 126/49
== END | disposition home or self-care (01) ==
LOC: EDBD → PMGWOUND 10:34
PROVIDERS: ATTEND Emergency Medicine Undersea and Hyperbaric Medicine
DX: L89.313 Pressure ulcer of right buttock, stage 3 (principal); E11.622 Type 2 diabetes mellitus with other skin ulcer; L98.411 Non-pressure chronic ulcer of buttock limited to breakdown of skin; B02.9 Zoster without complications; K21.9 Gastro-esophageal reflux disease without esophagitis; F32.9 Major depressive disorder, single episode, unspecified; M19.90 Unspecified osteoarthritis, unspecified site; E11.40 Type 2 diabetes mellitus with diabetic neuropathy, unspecified; Z86.73 Personal history of transient ischemic attack (TIA), and cerebral infarction without residual deficits; E78.00 Pure hypercholesterolemia, unspecified
CPT/HCPCS: 99214

== ENCOUNTER → 2017-02-13 | Outpatient (CLI) | payer MEDICARE, OTHER ==
[2016-11-25 10:22] VITALS: BP 126/49
== END | disposition home or self-care (01) ==
LOC: PMGWOUND 10:08
PROVIDERS: ATTEND Emergency Medicine Undersea and Hyperbaric Medicine
DX: B02.9 Zoster without complications (principal); K21.9 Gastro-esophageal reflux disease without esophagitis; F32.9 Major depressive disorder, single episode, unspecified; E78.00 Pure hypercholesterolemia, unspecified; E11.40 Type 2 diabetes mellitus with diabetic neuropathy, unspecified; M19.90 Unspecified osteoarthritis, unspecified site; I10 Essential (primary) hypertension; E11.69 Type 2 diabetes mellitus with other specified complication; M86.171 Other acute osteomyelitis, right ankle and foot; E11.51 Type 2 diabetes mellitus with diabetic peripheral angiopathy without gangrene; J45.909 Unspecified asthma, uncomplicated; Z86.73 Personal history of transient ischemic attack (TIA), and cerebral infarction without residual deficits
CPT/HCPCS: 99213

== ENCOUNTER → 2017-04-03 | Outpatient (CLI) | payer MEDICARE, OTHER ==
[2016-11-25 10:22] VITALS: BP 126/49
== END | disposition home or self-care (01) ==
LOC: PMGWOUND 10:30
PROVIDERS: ATTEND Emergency Medicine Undersea and Hyperbaric Medicine
DX: E11.622 Type 2 diabetes mellitus with other skin ulcer (principal); L98.411 Non-pressure chronic ulcer of buttock limited to breakdown of skin; L89.312 Pressure ulcer of right buttock, stage 2; I10 Essential (primary) hypertension; K21.9 Gastro-esophageal reflux disease without esophagitis; F32.9 Major depressive disorder, single episode, unspecified; E11.69 Type 2 diabetes mellitus with other specified complication; M86.171 Other acute osteomyelitis, right ankle and foot; E78.00 Pure hypercholesterolemia, unspecified; E11.40 Type 2 diabetes mellitus with diabetic neuropathy, unspecified; E11.51 Type 2 diabetes mellitus with diabetic peripheral angiopathy without gangrene; J45.909 Unspecified asthma, uncomplicated; M19.90 Unspecified osteoarthritis, unspecified site; Z86.73 Personal history of transient ischemic attack (TIA), and cerebral infarction without residual deficits
CPT/HCPCS: 99213

== ENCOUNTER → 2017-04-29 | Outpatient (CLI) | payer MEDICARE, OTHER | END | disposition home or self-care (01) | LOC: PMGWOUND 12:55 | DX: E11.622 Type 2 diabetes mellitus with other skin ulcer (principal); L98.411 Non-pressure chronic ulcer of buttock limited to breakdown of skin; L89.153 Pressure ulcer of sacral region, stage 3; K21.9 Gastro-esophageal reflux disease without esophagitis; F32.9 Major depressive disorder, single episode, unspecified; M19.90 Unspecified osteoarthritis, unspecified site; J45.909 Unspecified asthma, uncomplicated; E11.40 Type 2 diabetes mellitus with diabetic neuropathy, unspecified; E11.69 Type 2 diabetes mellitus with other specified complication; M86.8X7 Other osteomyelitis, ankle and foot; E78.00 Pure hypercholesterolemia, unspecified; E11.51 Type 2 diabetes mellitus with diabetic peripheral angiopathy without gangrene; I10 Essential (primary) hypertension; Z86.73 Personal history of transient ischemic attack (TIA), and cerebral infarction without residual deficits | CPT/HCPCS: 99214 ==

== ENCOUNTER → 2017-05-15 | Outpatient (CLI) | payer MEDICARE, OTHER ==
[2017-05-15 13:35] LABS: ADD MAN DIFF? NO
[2017-05-15 13:45] LABS: BASO # 0.1 x10^3/uL (0.0-0.2); BASO % 1 % (0-3); EOS # 0.3 x10^3/uL (0.0-0.7); EOS % 3 % (0-3); HEMATOCRIT 34.7 % (36.0-47.0); HEMOGLOBIN 11.3 g/dL (12.0-15.5); LYMPH # 2.4 x10^3/uL (1.0-4.8); LYMPH % 32 % (24-48); MEAN CORPUSCULAR HEMOGLOBIN 27 pg (25-35); MEAN CORPUSCULAR HGB CONC 33 g/dL (31-37); MEAN CORPUSCULAR VOLUME 84 fL (79-100); MONO # 0.5 x10^3/uL (0.0-1.1); MONO % 7 % (0-9); NEUT # 4.3 x10^3uL (1.8-7.7); NEUT % 57 % (31-73); PLATELET COUNT 221 x10^3/uL (140-400); RED BLOOD COUNT 4.14 x10^6/uL (3.50-5.40); RED CELL DISTRIBUTION WIDTH 15.3 % (11.5-14.5); WHITE BLOOD COUNT 7.6 x10^3/uL (4.0-11.0)
[2017-05-15 14:03] LABS: ANION GAP 8 (6-14); BLOOD UREA NITROGEN 15 mg/dL (7-20); CARBON DIOXIDE 30 mmol/L (21-32); CHLORIDE 103 mmol/L (98-107); CREATININE 0.6 mg/dL (0.6-1.0); GFR 94.3; GLUCOSE 122 mg/dL (70-99); SODIUM 141 mmol/L (136-145)
[2017-05-15 15:04] LABS: SEDIMENTATION RATE 35 (0-25)
== END | disposition home or self-care (01) ==
LOC: LAB 13:24
DX: Z13.9 Encounter for screening, unspecified (principal)
CPT/HCPCS: 36415; 80048; 85025; 85651

== ENCOUNTER → 2017-05-20 | Outpatient (CLI) | payer MEDICARE, OTHER | END | disposition home or self-care (01) | LOC: PMGWOUND 10:54 | DX: E11.622 Type 2 diabetes mellitus with other skin ulcer (principal); L89.153 Pressure ulcer of sacral region, stage 3; L98.411 Non-pressure chronic ulcer of buttock limited to breakdown of skin; K21.9 Gastro-esophageal reflux disease without esophagitis; F32.9 Major depressive disorder, single episode, unspecified; M19.90 Unspecified osteoarthritis, unspecified site; J45.909 Unspecified asthma, uncomplicated; E11.40 Type 2 diabetes mellitus with diabetic neuropathy, unspecified; E11.69 Type 2 diabetes mellitus with other specified complication; M86.8X7 Other osteomyelitis, ankle and foot; E78.00 Pure hypercholesterolemia, unspecified; E11.51 Type 2 diabetes mellitus with diabetic peripheral angiopathy without gangrene; I10 Essential (primary) hypertension; Z86.73 Personal history of transient ischemic attack (TIA), and cerebral infarction without residual deficits | CPT/HCPCS: 99212 ==

== ENCOUNTER → 2017-06-26 | Outpatient (CLI) | payer MEDICARE, OTHER | END | disposition home or self-care (01) | LOC: PMGWOUND 10:33 | DX: E11.622 Type 2 diabetes mellitus with other skin ulcer (principal); L89.153 Pressure ulcer of sacral region, stage 3; L98.491 Non-pressure chronic ulcer of skin of other sites limited to breakdown of skin; K21.9 Gastro-esophageal reflux disease without esophagitis; F32.9 Major depressive disorder, single episode, unspecified; M19.90 Unspecified osteoarthritis, unspecified site; J45.909 Unspecified asthma, uncomplicated; E11.40 Type 2 diabetes mellitus with diabetic neuropathy, unspecified; E11.69 Type 2 diabetes mellitus with other specified complication; M86.8X7 Other osteomyelitis, ankle and foot; E78.00 Pure hypercholesterolemia, unspecified; E11.51 Type 2 diabetes mellitus with diabetic peripheral angiopathy without gangrene; I10 Essential (primary) hypertension; Z86.73 Personal history of transient ischemic attack (TIA), and cerebral infarction without residual deficits | CPT/HCPCS: 99214 ==

== ENCOUNTER → 2017-07-10 | Outpatient (CLI) | payer MEDICARE, OTHER | END | disposition home or self-care (01) | LOC: PMGWOUND 10:00 | DX: E11.622 Type 2 diabetes mellitus with other skin ulcer (principal); L89.153 Pressure ulcer of sacral region, stage 3; L98.491 Non-pressure chronic ulcer of skin of other sites limited to breakdown of skin; K21.9 Gastro-esophageal reflux disease without esophagitis; F32.9 Major depressive disorder, single episode, unspecified; M19.90 Unspecified osteoarthritis, unspecified site; J45.909 Unspecified asthma, uncomplicated; E11.40 Type 2 diabetes mellitus with diabetic neuropathy, unspecified; E11.69 Type 2 diabetes mellitus with other specified complication; M86.8X7 Other osteomyelitis, ankle and foot; E78.00 Pure hypercholesterolemia, unspecified; E11.51 Type 2 diabetes mellitus with diabetic peripheral angiopathy without gangrene; I10 Essential (primary) hypertension; Z86.73 Personal history of transient ischemic attack (TIA), and cerebral infarction without residual deficits | CPT/HCPCS: 99214 ==

== ENCOUNTER → 2017-07-24 | Outpatient (CLI) | payer MEDICARE, OTHER | END | disposition home or self-care (01) | LOC: PMGWOUND 10:07 | DX: E11.622 Type 2 diabetes mellitus with other skin ulcer (principal); L89.153 Pressure ulcer of sacral region, stage 3; L98.491 Non-pressure chronic ulcer of skin of other sites limited to breakdown of skin; K21.9 Gastro-esophageal reflux disease without esophagitis; F32.9 Major depressive disorder, single episode, unspecified; M19.90 Unspecified osteoarthritis, unspecified site; J45.909 Unspecified asthma, uncomplicated; E11.40 Type 2 diabetes mellitus with diabetic neuropathy, unspecified; E11.69 Type 2 diabetes mellitus with other specified complication; M86.8X7 Other osteomyelitis, ankle and foot; E78.00 Pure hypercholesterolemia, unspecified; E11.51 Type 2 diabetes mellitus with diabetic peripheral angiopathy without gangrene; I10 Essential (primary) hypertension; Z86.73 Personal history of transient ischemic attack (TIA), and cerebral infarction without residual deficits | CPT/HCPCS: 99213 ==

== ENCOUNTER 2017-08-17 12:09 | Emergency (ER) | payer MEDICARE, OTHER | END 2017-08-17 13:24 | disposition home or self-care (01) | LOC: ER 12:09 | DX: T83.9XXA Unspecified complication of genitourinary prosthetic device, implant and graft, initial encounter (principal); I10 Essential (primary) hypertension; Z86.73 Personal history of transient ischemic attack (TIA), and cerebral infarction without residual deficits; Z98.890 Other specified postprocedural states; X58.XXXA Exposure to other specified factors, initial encounter; Y93.89 Activity, other specified; Y99.8 Other external cause status; Y92.89 Other specified places as the place of occurrence of the external cause | CPT/HCPCS: 51702; 99284-25 ==

== ENCOUNTER 2017-08-27 17:35 | Inpatient (IN) | payer OTHER, MEDICARE ==
[2017-08-27 19:14] LABS: ADD MAN DIFF? NO
[2017-08-27 19:17] LABS: BASO % 1 % (0-3); EOS # 0.2 x10^3/uL (0.0-0.7); EOS % 3 % (0-3); HEMATOCRIT 36.1 % (36.0-47.0); HEMOGLOBIN 11.9 g/dL (12.0-15.5); LYMPH # 2.7 x10^3/uL (1.0-4.8); LYMPH % 37 % (24-48); MEAN CORPUSCULAR HEMOGLOBIN 27 pg (25-35); MEAN CORPUSCULAR HGB CONC 33 g/dL (31-37); MEAN CORPUSCULAR VOLUME 80 fL (79-100); MONO # 0.5 x10^3/uL (0.0-1.1); MONO % 8 % (0-9); NEUT # 3.8 x10^3uL (1.8-7.7); NEUT % 52 % (31-73); PLATELET COUNT 180 x10^3/uL (140-400); RED BLOOD COUNT 4.49 x10^6/uL (3.50-5.40); RED CELL DISTRIBUTION WIDTH 16.3 % (11.5-14.5); WHITE BLOOD COUNT 7.3 x10^3/uL (4.0-11.0)
[2017-08-27] MEDS: IV NORMAL SALINE 500ML BAG 500 ML IV (19:19)
[2017-08-27] MEDS: MORPHINE SULFATE 4 MG/ML DISP.SYRIN. IV (19:20)
[2017-08-27 19:24] LABS: ANION GAP 10 (6-14); BLOOD UREA NITROGEN 28 mg/dL (7-20); BUN/CREATININE RATIO 40 (6-20); CALCIUM 8.9 mg/dL (8.5-10.1); CARBON DIOXIDE 27 mmol/L (21-32); CHLORIDE 105 mmol/L (98-107); CREATININE 0.7 mg/dL (0.6-1.0); GLUCOSE 95 mg/dL (70-99); POTASSIUM 3.9 mmol/L (3.5-5.1); SODIUM 142 mmol/L (136-145)
[2017-08-27 19:29] LABS: D-DIMER 3.01 ug/mlFEU (0.00-0.50)
[2017-08-27 19:30] LABS: ALBUMIN 3.2 g/dL (3.4-5.0); ALBUMIN/GLOBULIN RATIO 0.8 (1.0-1.7); ALK PHOS 110 U/L (46-116); ALT (SGPT) 29 U/L (14-59); AST (SGOT) 28 U/L (15-37); TOTAL BILIRUBIN 0.2 mg/dL (0.2-1.0); TOTAL PROTEIN 7.4 g/dL (6.4-8.2)
[2017-08-27 19:33] LABS: BILIRUBIN,URINE NEGATIVE (NEG); CLARITY,URINE CLOUDY; COLOR,URINE YELLOW; GLUCOSE,URINE NEGATIVE (NEG); NITRITE,URINE POSITIVE (NEG); PROTEIN,URINE NEGATIVE (NEG-TRACE); UROBILINOGEN,URINE 0.2 mg/dL (0.2 mg/dL)
[2017-08-27] MEDS ORDERED: CONTRAST GIVEN MC (19:45)
[2017-08-27 19:47] LABS: BACTERIA,URINE FEW /HPF (0-FEW); SQUAMOUS EPITHELIAL CELL,UR FEW /LPF; WBC,URINE 20-40 /HPF (0-4)
[2017-08-27] MEDS: IOHEXOL 300 MG/ML 100ML VIAL. IV (19:47)
[2017-08-27] MEDS ORDERED: MORPHINE SULFATE 4 MG/ML DISP.SYRIN. IV ×2 (21:45)
[2017-08-27] MEDS ORDERED: fentaNYL PF VIAL 100 MCG/2 ML VIAL IV (21:45)
[2017-08-27] MEDS ORDERED: ONDANSETRON PF 4 MG/2 ML VIAL. IV (21:45)
[2017-08-27] MEDS: IV NORMAL SALINE 1000ML BAG 1,000 ML IV (22:30)
[2017-08-27] MEDS: PANTOPRAZOLE IV PUSH 40 MG VIAL. IVP (22:30)
[2017-08-28 04:48] LABS: ADD MAN DIFF? NO
[2017-08-28 05:00] LABS: BASO % 1 % (0-3); EOS # 0.2 x10^3/uL (0.0-0.7); EOS % 3 % (0-3); HEMATOCRIT 33.7 % (36.0-47.0); HEMOGLOBIN 11.1 g/dL (12.0-15.5); LYMPH # 2.8 x10^3/uL (1.0-4.8); LYMPH % 46 % (24-48); MEAN CORPUSCULAR HEMOGLOBIN 27 pg (25-35); MEAN CORPUSCULAR HGB CONC 33 g/dL (31-37); MEAN CORPUSCULAR VOLUME 82 fL (79-100); MONO # 0.5 x10^3/uL (0.0-1.1); MONO % 9 % (0-9); NEUT # 2.5 x10^3uL (1.8-7.7); NEUT % 41 % (31-73); PLATELET COUNT 155 x10^3/uL (140-400); RED BLOOD COUNT 4.14 x10^6/uL (3.50-5.40); RED CELL DISTRIBUTION WIDTH 16.6 % (11.5-14.5); WHITE BLOOD COUNT 6.2 x10^3/uL (4.0-11.0)
[2017-08-28 05:32] LABS: ALBUMIN 2.6 g/dL (3.4-5.0); ALBUMIN/GLOBULIN RATIO 0.7 (1.0-1.7); ALK PHOS 99 U/L (46-116); ALT (SGPT) 64 U/L (14-59); ANION GAP 5 (6-14); AST (SGOT) 78 U/L (15-37); BLOOD UREA NITROGEN 24 mg/dL (7-20); BUN/CREATININE RATIO 40 (6-20); CALCIUM 8.6 mg/dL (8.5-10.1); CARBON DIOXIDE 27 mmol/L (21-32); CHLORIDE 111 mmol/L (98-107); CREATININE 0.6 mg/dL (0.6-1.0); GFR 94.3; GLUCOSE 80 mg/dL (70-99); SODIUM 143 mmol/L (136-145); TOTAL BILIRUBIN 0.2 mg/dL (0.2-1.0); TOTAL PROTEIN 6.4 g/dL (6.4-8.2)
[2017-08-28] MEDS: IV NORMAL SALINE 1000ML BAG 1,000 ML IV ×2 (05:45→14:45)
[2017-08-28] MEDS ORDERED: IBUPROFEN 600 MG TABLET. PO (08:45)
[2017-08-28] MEDS: SERTRALINE 25 MG TABLET. PO (09:48)
[2017-08-28] MEDS: GABAPENTIN 300 MG CAPSULE. PO ×3 (09:48→21:14)
[2017-08-28] MEDS: LISINOPRIL 10 MG TABLET PO (09:49)
[2017-08-28] MEDS: ENOXAPARIN 40 MG/0.4 ML SYRINGE. SQ (09:49)
[2017-08-28] MEDS: POLYETHYLENE GLYCOL 3350 17 GM PACKET. PO (09:50)
[2017-08-28] MEDS ORDERED: LIDO:MAALOX 1:1 20 ML SINGLE DOSE. PO (10:30)
[2017-08-28] MEDS ORDERED: CONTRAST GIVEN MC (11:00)
[2017-08-28] MEDS: IOHEXOL 300 MG/ML 100ML VIAL. IV (11:31)
[2017-08-28] MEDS: PANTOPRAZOLE 40 MG TABLET.DR. PO (12:14)
[2017-08-28] MEDS: MAGNESIUM CITRATE 296 ML SOLUTION. PO (21:14)
[2017-08-28] MEDS: cefTRIAXone IV Push 1 GM VIAL. IVP (21:15)
[2017-08-29 03:44] LABS: ADD MAN DIFF? NO
[2017-08-29 04:35] LABS: BASO % 1 % (0-3); EOS # 0.2 x10^3/uL (0.0-0.7); EOS % 4 % (0-3); HEMATOCRIT 32.9 % (36.0-47.0); HEMOGLOBIN 11.1 g/dL (12.0-15.5); LYMPH # 2.1 x10^3/uL (1.0-4.8); LYMPH % 37 % (24-48); MEAN CORPUSCULAR HEMOGLOBIN 27 pg (25-35); MEAN CORPUSCULAR HGB CONC 34 g/dL (31-37); MEAN CORPUSCULAR VOLUME 82 fL (79-100); MONO # 0.4 x10^3/uL (0.0-1.1); MONO % 7 % (0-9); NEUT # 2.9 x10^3uL (1.8-7.7); NEUT % 51 % (31-73); PLATELET COUNT 149 x10^3/uL (140-400); RED BLOOD COUNT 4.03 x10^6/uL (3.50-5.40); RED CELL DISTRIBUTION WIDTH 16.5 % (11.5-14.5); WHITE BLOOD COUNT 5.8 x10^3/uL (4.0-11.0)
[2017-08-29 05:50] LABS: ANION GAP 7 (6-14); BLOOD UREA NITROGEN 9 mg/dL (7-20); CALCIUM 8.1 mg/dL (8.5-10.1); CARBON DIOXIDE 25 mmol/L (21-32); CHLORIDE 114 mmol/L (98-107); CREATININE 0.5 mg/dL (0.6-1.0); GFR 116.4; GLUCOSE 79 mg/dL (70-99); POTASSIUM 3.6 mmol/L (3.5-5.1); SODIUM 146 mmol/L (136-145)
[2017-08-29] MEDS: IOHEXOL 300 MG/ML 100ML VIAL. IJ (08:00)
[2017-08-29] MEDS ORDERED: CONTRAST GIVEN MC (08:15)
[2017-08-29] MEDS: PANTOPRAZOLE 40 MG TABLET.DR. PO (08:23)
[2017-08-29] MEDS: POLYETHYLENE GLYCOL 3350 17 GM PACKET. PO (08:23)
[2017-08-29] MEDS: SERTRALINE 25 MG TABLET. PO (08:23)
[2017-08-29] MEDS: GABAPENTIN 300 MG CAPSULE. PO ×3 (08:24→20:44)
[2017-08-29] MEDS: LISINOPRIL 10 MG TABLET PO (08:24)
[2017-08-29] MEDS: ENOXAPARIN 40 MG/0.4 ML SYRINGE. SQ (08:25)
[2017-08-29 08:49] LABS: ALBUMIN 2.6 g/dL (3.4-5.0); ALK PHOS 86 U/L (46-116); ALT (SGPT) 46 U/L (14-59); AST (SGOT) 41 U/L (15-37); DIRECT BILIRUBIN < 0.1 mg/dL (0.0-0.2); TOTAL BILIRUBIN 0.2 mg/dL (0.2-1.0); TOTAL PROTEIN 6.5 g/dL (6.4-8.2)
[2017-08-29] MEDS: ACETAMINOPHEN 650 MG/20.3 ML SOLUTION. PEG (16:11)
[2017-08-29] MEDS: cefTRIAXone IV Push 1 GM VIAL. IVP (20:44)
[2017-08-30 06:01] LABS: ALBUMIN 2.6 g/dL (3.4-5.0); ALBUMIN/GLOBULIN RATIO 0.6 (1.0-1.7); ALK PHOS 95 U/L (46-116); ALT (SGPT) 50 U/L (14-59); ANION GAP 8 (6-14); AST (SGOT) 45 U/L (15-37); BLOOD UREA NITROGEN 7 mg/dL (7-20); BUN/CREATININE RATIO 12 (6-20); CALCIUM 8.9 mg/dL (8.5-10.1); CARBON DIOXIDE 27 mmol/L (21-32); CHLORIDE 107 mmol/L (98-107); CREATININE 0.6 mg/dL (0.6-1.0); GFR 94.3; GLUCOSE 87 mg/dL (70-99); SODIUM 142 mmol/L (136-145); TOTAL BILIRUBIN 0.4 mg/dL (0.2-1.0); TOTAL PROTEIN 6.9 g/dL (6.4-8.2)
[2017-08-30] MEDS: PANTOPRAZOLE 40 MG TABLET.DR. PO (09:43)
[2017-08-30] MEDS: SERTRALINE 25 MG TABLET. PO (09:43)
[2017-08-30] MEDS: GABAPENTIN 300 MG CAPSULE. PO (09:45)
[2017-08-30] MEDS: LISINOPRIL 10 MG TABLET PO (09:45)
[2017-08-30] MEDS: ENOXAPARIN 40 MG/0.4 ML SYRINGE. SQ (09:45)
[2017-08-30] MEDS: CIPROFLOXACIN HCL 250 MG TABLET. PO (09:48)
[2017-08-30] MEDS: POLYETHYLENE GLYCOL 3350 17 GM PACKET. PO (09:48)
[2017-08-30] MEDS: POTASSIUM CHLORIDE 20 MEQ TABLET.ER. PO (11:34)
== END 2017-08-30 12:35 | disposition home or self-care (01) | DRG 690 ==
LOC: ER 17:35 → 5 SOUTH 23:00
DX: N39.0 Urinary tract infection, site not specified (principal); E44.0 Moderate protein-calorie malnutrition; I69.359 Hemiplegia and hemiparesis following cerebral infarction affecting unspecified side; N31.9 Neuromuscular dysfunction of bladder, unspecified; B96.5 Pseudomonas (aeruginosa) (mallei) (pseudomallei) as the cause of diseases classified elsewhere; E11.9 Type 2 diabetes mellitus without complications; B96.89 Other specified bacterial agents as the cause of diseases classified elsewhere; F03.90 Unspecified dementia, unspecified severity, without behavioral disturbance, psychotic disturbance, mood disturbance, and anxiety; I10 Essential (primary) hypertension; K21.9 Gastro-esophageal reflux disease without esophagitis; K57.90 Diverticulosis of intestine, part unspecified, without perforation or abscess without bleeding; K59.00 Constipation, unspecified; F32.9 Major depressive disorder, single episode, unspecified; K64.9 Unspecified hemorrhoids; R79.1 Abnormal coagulation profile; Z81.8 Family history of other mental and behavioral disorders; Z82.49 Family history of ischemic heart disease and other diseases of the circulatory system; Z83.3 Family history of diabetes mellitus; Z87.440 Personal history of urinary (tract) infections; Z90.49 Acquired absence of other specified parts of digestive tract; I69.320 Aphasia following cerebral infarction; Z88.8 Allergy status to other drugs, medicaments and biological substances
CPT/HCPCS: 36415; 71275; 73501; 74177; 78582; 80048; 80053; 80076; 81001; 85025; 85379; 87086; 87186; 93005; 96365; 96374; 96375; 97161-GP; 97166-GO; 99285; 99285-25; A9540; A9558; C9113; J0690; J0696; J1650; J2270; J7030; J7040; Q9967

== ENCOUNTER → 2017-08-27 | Outpatient (CLI) | payer MEDICARE, OTHER | END | disposition home or self-care (01) | LOC: PMGWOUND 09:02 | DX: E11.622 Type 2 diabetes mellitus with other skin ulcer (principal); L89.153 Pressure ulcer of sacral region, stage 3; L98.491 Non-pressure chronic ulcer of skin of other sites limited to breakdown of skin; K21.9 Gastro-esophageal reflux disease without esophagitis; F32.9 Major depressive disorder, single episode, unspecified; M19.90 Unspecified osteoarthritis, unspecified site; J45.909 Unspecified asthma, uncomplicated; E11.40 Type 2 diabetes mellitus with diabetic neuropathy, unspecified; E11.69 Type 2 diabetes mellitus with other specified complication; M86.8X7 Other osteomyelitis, ankle and foot; E78.00 Pure hypercholesterolemia, unspecified; E11.51 Type 2 diabetes mellitus with diabetic peripheral angiopathy without gangrene; I10 Essential (primary) hypertension; Z86.73 Personal history of transient ischemic attack (TIA), and cerebral infarction without residual deficits | CPT/HCPCS: 99213 ==

== ENCOUNTER 2017-10-06 09:53 | Emergency (ER) | payer MEDICARE, OTHER ==
[2017-10-06 11:56] LABS: ADD MAN DIFF? NO
[2017-10-06 12:00] LABS: BASO % 0 % (0-3); EOS # 0.2 x10^3/uL (0.0-0.7); EOS % 2 % (0-3); HEMATOCRIT 35.9 % (36.0-47.0); HEMOGLOBIN 11.7 g/dL (12.0-15.5); LYMPH # 2.3 x10^3/uL (1.0-4.8); LYMPH % 28 % (24-48); MEAN CORPUSCULAR HEMOGLOBIN 26 pg (25-35); MEAN CORPUSCULAR HGB CONC 33 g/dL (31-37); MEAN CORPUSCULAR VOLUME 80 fL (79-100); MONO # 0.6 x10^3/uL (0.0-1.1); MONO % 8 % (0-9); NEUT # 5.3 x10^3uL (1.8-7.7); NEUT % 62 % (31-73); PLATELET COUNT 176 x10^3/uL (140-400); RED BLOOD COUNT 4.47 x10^6/uL (3.50-5.40); WHITE BLOOD COUNT 8.4 x10^3/uL (4.0-11.0)
[2017-10-06 12:05] LABS: ANION GAP 7 (6-14); BLOOD UREA NITROGEN 27 mg/dL (7-20); BUN/CREATININE RATIO 39 (6-20); CALCIUM 9.5 mg/dL (8.5-10.1); CARBON DIOXIDE 29 mmol/L (21-32); CHLORIDE 103 mmol/L (98-107); CREATININE 0.7 mg/dL (0.6-1.0); GLUCOSE 94 mg/dL (70-99); SODIUM 139 mmol/L (136-145)
[2017-10-06 12:11] LABS: ALBUMIN 3.2 g/dL (3.4-5.0); ALBUMIN/GLOBULIN RATIO 0.7 (1.0-1.7); ALK PHOS 104 U/L (46-116); ALT (SGPT) 31 U/L (14-59); AST (SGOT) 29 U/L (15-37); LIPASE 129 U/L (73-393); TOTAL BILIRUBIN 0.3 mg/dL (0.2-1.0); TOTAL PROTEIN 7.7 g/dL (6.4-8.2)
[2017-10-06] MEDS: IOHEXOL 300 MG/ML 100ML VIAL. IV (12:36)
[2017-10-06 12:48] LABS: BILIRUBIN,URINE NEGATIVE (NEG); CLARITY,URINE CLEAR; COLOR,URINE YELLOW; GLUCOSE,URINE NEGATIVE (NEG); NITRITE,URINE NEGATIVE (NEG); PROTEIN,URINE NEGATIVE (NEG-TRACE); UROBILINOGEN,URINE 0.2 mg/dL (0.2 mg/dL)
[2017-10-06 12:49] LABS: BACTERIA,URINE 0 /HPF (0-FEW); RBC,URINE 0 /HPF (0-2)
[2017-10-06 12:50] LABS: SQUAMOUS EPITHELIAL CELL,UR MANY /LPF
[2017-10-06 12:52] LABS: WBC,URINE >40 /HPF (0-4)
[2017-10-06] MEDS: BISACODYL 10 MG SUPP.RECT. PR (14:14)
[2017-10-06] MEDS: DOCUSATE 100 MG/10 ML SOLUTION. PO (14:14)
[2017-10-06] MEDS ORDERED: ONDANSETRON PF 4 MG/2 ML VIAL. (14:32)
[2017-10-06] MEDS: ONDANSETRON PF 4 MG/2 ML VIAL. IV (14:37)
[2017-10-06] MEDS: ACETAMINOPHEN 325 MG TABLET. PO (14:43)
== END 2017-10-06 15:40 | disposition home or self-care (01) ==
LOC: ER 09:53
DX: N39.0 Urinary tract infection, site not specified (principal); K56.41 Fecal impaction; E11.40 Type 2 diabetes mellitus with diabetic neuropathy, unspecified; I10 Essential (primary) hypertension; Z86.73 Personal history of transient ischemic attack (TIA), and cerebral infarction without residual deficits
CPT/HCPCS: 36415; 74177; 80053; 81001; 83690; 85025; 96365; 96375; 99285-25; A4314; J0690; J2405; Q9967

== ENCOUNTER 2018-04-14 18:24 | Emergency (ER) | payer MEDICARE, OTHER ==
[2018-01-20 15:23] VITALS: BP 150/62
[~2018-04-14 18:24] MED LIST changes: +ACET1TAB33 PO; +AMOX1TAB11 PO; +ASPI-612 PO; +ATOR10TA60 PO; +CIPR250T30 PO; +CIPR500T94 PO; +DOCU-109 PO; -GABA-586 PO; +GABA300C18 PO; +IBUP-1007 PO; +MAGN400T22 PO; -MINO50CA PO; +MINO50CA3 PO; +NA P133E2 RC; +OMEP20CA9 PO; +ONDA4TAB7 PO; +PENI500T PO; +POLY17PO28 PO; +POLY17PO29 PO; +POTA10TA12 PO; +Pantoprazole PO
== END 2018-04-14 20:44 | disposition left against medical advice (07) ==
LOC: ER 18:24
DX: R06.02 Shortness of breath (principal); R05 Cough; Z53.21 Procedure and treatment not carried out due to patient leaving prior to being seen by health care provider

== ENCOUNTER 2018-09-13 17:13 | Emergency (ER) | payer MEDICARE, OTHER ==
[~2018-09-13] VITALS: Ht 165.1 cm; Wt 61.2 kg
[~2018-09-13 17:13] MED LIST changes: -GABA600T2 PO; +GABA600T7 PO; +OMEP20CA10 PO; -OMEP20CA9 PO
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
[2018-09-13] MEDS ORDERED: fentaNYL PF VIAL 100 MCG/2 ML VIAL IM ONE (18:00)
--- NOTE | 2018-09-13 19:34 | RAD ---
CT head and cervical spine without contrast 09/13/2018. Reason for exam: Head injury. Fell face forward. History of CVA. Noncontrast images were performed. Sagittal and coronal reconstructions of the cervical spine were obtained. Exposure: One or more of the following individualized dose reduction techniques were utilized for this examination: 1. Automated exposure control 2. Adjustment of the mA and/or kV according to patient size 3. Use of iterative reconstruction technique. CT HEAD: No intracranial hemorrhage or abnormal extra-axial fluid collection is seen. There is evidence of prior infarcts in the right cerebellar hemisphere and left frontal and parietal regions. There is some enlargement of the left lateral ventricle related to volume loss. The ventricles and basilar cisterns are normally positioned. No other region of abnormal density is seen. There is a large frontal scalp hematoma and evidence of mildly depressed nasal fracture. No skull fracture is seen. IMPRESSION: No acute intracranial abnormality. Nasal fracture. CT cervical spine findings: Alignment is normal. There is no apparent loss of vertebral body height or prevertebral soft tissue swelling. No fracture line is seen. The intervertebral discs are fairly well maintained in height. No destructive process is seen. IMPRESSION: No apparent acute abnormality. Electronically signed by: Anthony Borges Jr., MD (09/13/2018 7:31 PM) [facility]
[2018-09-13 20:55] VITALS: BP 178/85
== END 2018-09-13 21:02 | disposition home or self-care (01) ==
LOC: ER 17:13 → MERGE 17:13 → ER 21:02
DX: S02.2XXA Fracture of nasal bones, initial encounter for closed fracture (principal); S00.83XA Contusion of other part of head, initial encounter; M54.2 Cervicalgia; R51 Headache; E11.9 Type 2 diabetes mellitus without complications; Z86.73 Personal history of transient ischemic attack (TIA), and cerebral infarction without residual deficits; W05.0XXA Fall from non-moving wheelchair, initial encounter; Y93.89 Activity, other specified; Y92.89 Other specified places as the place of occurrence of the external cause; Y99.8 Other external cause status
CPT/HCPCS: 70450; 72125; 96372; 99284; J3010

== ENCOUNTER → 2018-10-05 | Outpatient (CLI) | payer MEDICARE, OTHER ==
[2018-01-20 15:23] VITALS: BP 150/62
--- NOTE | 2018-10-05 17:17 | RAD ---
Left lower abdominal wall ultrasound, 10/05/2018: HISTORY: Enterocutaneous fistula A targeted ultrasound exam of the area of concern in the left lower quadrant was performed. In the region of the draining wound there is a hypoechoic tract extending into the subcutaneous soft tissues. It contains echogenic foci compatible with gas. Directly beneath the skin surface this tract measures approximately 9 mm in width. Its inferior extent is not clearly defined. Its deepest visible component measures approximately 6 mm in width. No clearly defined drainable fluid collection is identified. Electronically signed by: Ruddy Coombs MD (10/05/2018 5:14 PM) [facility]
== END | disposition home or self-care (01) ==
LOC: US 10:49
PROVIDERS: ATTEND Family Medicine
DX: K63.2 Fistula of intestine (principal)
CPT/HCPCS: 76705